=== PATIENT | male | born 1965 | race Caucasian/White ===

== ENCOUNTER 2016-12-24 20:50 | Emergency (ER) | payer BC, OTHER ==
[~2016-12-24] VITALS: Ht 177.8 cm; Wt 69.7 kg
[2016-12-24 20:53] VITALS: BP 124/72
[2016-12-24] MEDS ORDERED: LIDOCAINE 1%, 20ML ONE (21:17)
== END 2016-12-24 22:03 | disposition home or self-care (01) ==
LOC: ED 22:00
DX: M70.21 Olecranon bursitis, right elbow (principal); M54.42 Lumbago with sciatica, left side; M79.605 Pain in left leg
CPT/HCPCS: 20605

== ENCOUNTER 2017-03-09 04:04 | Emergency (ER) | payer BC ==
[~2017-03-09] VITALS: Ht 177.8 cm; Wt 73.5 kg
[2017-03-09 04:06] VITALS: BP 124/72
== END 2017-03-09 06:59 | disposition home or self-care (01) ==
LOC: ED 06:19
DX: G89.11 Acute pain due to trauma (principal); M79.672 Pain in left foot
CPT/HCPCS: 99284

== ENCOUNTER 2017-05-03 17:15 | Emergency (ER) | payer BC ==
[~2017-05-03] VITALS: Ht 177.8 cm; Wt 70.0 kg
[2017-05-03 17:20] VITALS: BP 134/86
[2017-05-03] MEDS ORDERED: LIDOCAINE 1%, 20ML SQ ONE (19:00)
[2017-05-03] MEDS ORDERED: LIDOCAINE 1%, 20ML ONE (19:01)
[2017-05-03] MEDS ORDERED: CLINDAMYCIN 300 MG CAPSULE PO ONE (19:30)
[2017-05-03] MEDS ORDERED: CLINDAMYCIN 150 MG CAPSULE ONE (19:34)
== END 2017-05-03 20:03 | disposition home or self-care (01) ==
LOC: ED 17:35
DX: L03.317 Cellulitis of buttock (principal); F17.200 Nicotine dependence, unspecified, uncomplicated
CPT/HCPCS: 99284